=== PATIENT | male | born 1960 | race American Indian/Alaskan Native ===

== ENCOUNTER 2020-09-08 08:39 | Outpatient (CLI) | payer BC ==
--- NOTE | 2020-09-08 10:20 | Cat Scan Report ---
CT ABDOMEN AND PELVIS WITHOUT CONTRAST INDICATION / CLINICAL INFORMATION: MALIGNANT NEOPLASM OF PROSTATE. TECHNIQUE: Axial CT images were obtained through the abdomen and pelvis without IV contrast. All CT scans at [facility] location are performed using CT dose reduction for ALARA by means of automated exposure control. COMPARISON: None available. FINDINGS: LOWER CHEST: Mild left lung base and right middle lobe atelectasis. No pulmonary nodules. LIVER: Diffuse hepatic steatosis. No focal hepatic lesions. GALLBLADDER: No significant abnormality. BILE DUCTS: No significant abnormality. PANCREAS: No significant abnormality. SPLEEN: No significant abnormality. ADRENALS: No significant abnormality. RIGHT KIDNEY / URETER: Multiple simple parapelvic cysts. Small parenchymal cyst is also noted right s upra pole. No calcified stones or hydronephrosis. LEFT KIDNEY / URETER: Multiple simple parapelvic cysts. Scattered small parenchymal cysts are also no reyes and appears simple. No calcite stones or hydronephrosis. STOMACH / SMALL BOWEL: No significant abnormality. No mechanical obstruction. COLON: Mi colonic diverticulosis without evidence of diverticulitis. APPENDIX: No significant abnormality. PERITONEUM: No free fluid. No free air. No fluid collection. LYMPH NODES: No significant adenopathy. AORTA / ARTERIES: No significant abnormality. IVC / VEINS: No significant abnormality. URINARY BLADDER: Minimally decompressed urinary bladder. REPRODUCTIVE ORGANS: Minimally enlarged prostate measures 4.7 cm. ADDITIONAL FINDINGS: Bilateral fat-containing inguinal hernias. SKELETAL SYSTEM: Multilevel degenerative changes are noted of the visualized spine. Sacralization is noted of the L5 vertebral body. Multilevel facet arthropathy is noted. Well-circumscribed lytic lesio n measures 1.1 cm in the spinous process of the L1 vertebral level. No blastic osseous lesions. IMPRESSION: 1. 1.1 cm lytic lesion of the spinous process at the L1 vertebral level needs further characterizatio n with scheduled nuclear medicine bone scan. There is no evidence of blastic osseous lesions. 2. No lymphadenopathy. 3. Hepatic steatosis. 4. Mi colonic diverticulosis without evidence of diverticulitis. Signer Name: Cedric Abdullahi MD Signed: 09/08/2020 10:16 AM Workstation Name: [id number]
--- NOTE | 2020-09-08 13:43 | Nuclear Medicine Report ---
Whole body bone scan INDICATION: Prostate cancer restaging TECHNIQUE: A total of 25.8 millicuries of technetium 99 MDP was injected IV per protocol. Whole-body images were obtained. COMPARISON: 09/08/2020 CT FINDINGS: Diffuse radiotracer uptake identified throughout the axial and appendicular skeleton with r enal excretion. There is severe uptake identified in the region of the left L5-S1 and the right L5-S1 facets as well as the left L3-L4 and L4-L5 facets. I do not see definite uptake in the region of the lytic abnormality of the L1 spinous process. IMPRESSION: Severe multilevel lumbar facet type uptake, as above. Although there is focal spinous upt charlie I do not definitely identified uptake suggestive of metastatic disease. Signer Name: Vikram Hidalgo MD Signed: 09/08/2020 1:38 PM Workstation Name: [id number]
== END 2020-09-08 08:40 | disposition home or self-care (01) ==
LOC: NM 08:39
PROVIDERS: ATTEND Urology
DX: K76.0 Fatty (change of) liver, not elsewhere classified (principal); J98.11 Atelectasis; N28.1 Cyst of kidney, acquired; K57.30 Diverticulosis of large intestine without perforation or abscess without bleeding; N40.0 Benign prostatic hyperplasia without lower urinary tract symptoms; K40.90 Unilateral inguinal hernia, without obstruction or gangrene, not specified as recurrent; M47.819 Spondylosis without myelopathy or radiculopathy, site unspecified; G95.9 Disease of spinal cord, unspecified
CPT/HCPCS: 74176; 78306; A9503